=== PATIENT | female | born 1995 | race Caucasian/White ===

== ENCOUNTER → 2017-05-02 | Outpatient (CLI) | payer OTHER ==
[2017-05-03 15:01] LABS: Source VAGINAL
== END | disposition home or self-care (01) ==
LOC: LAB SHORT 14:24 → LAB 14:24
PROVIDERS: Advanced Practice Midwife
DX: Z36.89 Encounter for other specified antenatal screening (principal)
CPT/HCPCS: 87491; 87591; 87661; G0123

== ENCOUNTER → 2017-08-20 | Outpatient (CLI) | payer BC, OTHER ==
[2017-08-20 18:39] LABS: Hemoglobin 11.3 g/dL (11.5-16.0)
== END | disposition home or self-care (01) ==
LOC: LAB SHORT 16:55 → LAB 16:55
PROVIDERS: Advanced Practice Midwife
DX: Z34.80 Encounter for supervision of other normal pregnancy, unspecified trimester (principal)
CPT/HCPCS: 82950; 85014; 85018

== ENCOUNTER → 2017-10-22 | Outpatient (CLI) | payer BC, OTHER | LOC: PLD 04:22 → LAB SHORT 04:22 | DX: Z34.80 Encounter for supervision of other normal pregnancy, unspecified trimester (principal) | CPT/HCPCS: 87081; 87653 ==

== ENCOUNTER → 2020-05-11 | Outpatient (CLI) | payer OTHER ==
[~2020-05-11] MED LIST: DOCU100 PO; FERSU90EL PO; FISH OIL + D31 EACH PO; FOLGARD TABLET1 EACH PO; PRENATA CHEWAB1 EACH PO
== END | disposition home or self-care (01) ==
LOC: LAB 14:15 → LAB SHORT 14:15
PROVIDERS: Obstetrics & Gynecology
DX: Z34.81 Encounter for supervision of other normal pregnancy, first trimester (principal)
CPT/HCPCS: G0123

== ENCOUNTER → 2020-06-10 | Outpatient (CLI) | payer OTHER ==
[2020-06-10 13:37] LABS: Source, Urine Voided
[2020-06-10 15:15] LABS: Appearance, Urine Clear (Clear); Bilirubin, Urine Neg (Neg); Blood, Urine 1+ (Neg); Color, Urine Yellow (P-Yellow); Glucose Qualitative, Urine Neg (Neg); Ketones, Urine Neg (Neg); Leukocyte Esterase, Urine 3+ (Neg); Nitrite, Urine Neg (Neg); Protein, Urine Neg (Neg); Specific Gravity, Urine 1.015 (1.003-1.022); Urobilinogen, Urine NORM (Normal)
[2020-06-10 15:24] LABS: Bacteria Many /hpf; Red Blood Cells, Urine 0-2 /hpf (0-2); Squamous Epithelial Cells Mod /hpf (Few)
[2020-06-11 08:29] LABS: G. vaginalis (DNA Probe) Positive (NEGATIVE); T. vaginalis (DNA Probe) Negative (NEGATIVE)
[2020-06-11 08:30] LABS: Candida species (DNA Probe) Positive (NEGATIVE)
== END | disposition home or self-care (01) ==
LOC: LAB SHORT 10:30
PROVIDERS: Advanced Practice Midwife
DX: N76.0 Acute vaginitis (principal)
CPT/HCPCS: 81001; 87086; 87480; 87510; 87660

== ENCOUNTER → 2020-11-02 | Outpatient (CLI) | payer OTHER | END | disposition home or self-care (01) | LOC: LAB SHORT 11:51 → LAB 11:51 | DX: Z34.81 Encounter for supervision of other normal pregnancy, first trimester (principal) | CPT/HCPCS: 87081; 87150 ==

== ENCOUNTER 2020-11-24 05:07 | Inpatient (IN) | payer OTHER ==
[~2020-11-24] VITALS: Ht 170.2 cm; Wt 90.5 kg
[2020-11-24 06:41] LABS: BASOPHILS ABSOLUTE AUTO 0.02 K/mm3 (0.00-0.23); BASOPHILS PERCENT AUTO 0 % (0-2); EOSINOPHILS ABSOLUTE AUTO 0.03 K/mm3 (0.00-0.68); EOSINOPHILS PERCENT AUTO 0 % (0-6); Hematocrit 37.9 % (33.0-51.0); Hemoglobin 13.2 g/dL (11.5-16.0); IMMATURE GRAN ABSOLUTE AUTO 0.07 K/mm3 (0.00-0.10); IMMATURE GRAN PERCENT AUTO 1 % (0-1); LYMPHOCYTES ABSOLUTE AUTO 1.42 K/mm3 (0.84-5.20); LYMPHOCYTES PERCENT AUTO 13 % (21-46); MONOCYTES PERCENT AUTO 3 % (4-13); Mean Corpuscular HGB 30.8 pg (26.0-34.0); Mean Corpuscular HGB Conc 34.8 g/dL (31.5-36.5); Mean Corpuscular Volume 89 fL (80-100); Mean Platelet Volume 11.5 fL (9.1-12.4); NEUTROPHILS ABSOLUTE AUTO 8.86 K/mm3 (1.96-9.15); NEUTROPHILS PERCENT AUTO 83 % (41-73); Platelet Count 163 K/mm3 (150-400); RDW Coefficient Variation 14.5 % (11.7-14.2); RDW Standard Deviation 46.2 fL (35.1-46.3); Red Blood Cell Count 4.28 M/mm3 (3.80-5.20)
[2020-11-24 07:28] LABS: SARS-Cov-2 (COVID-19) PCR, MMC Negative (NEGATIVE)
--- NOTE | 2020-11-25 10:57 | NUR ---
DISCHARGE INSTRUCTION DISCUSSED WITH PATIENT. QUESTIONS AND CONCERNS WERE ANSWERED. PATIENT DISCHARGED HOME.
== END 2020-11-25 10:55 | disposition home or self-care (01) | DRG 807 ==
LOC: OBS 05:07 → BC 05:09 → OBS 05:51 → BC 05:54
PROVIDERS: ADMIT Advanced Practice Midwife
PROC: 10E0XZZ Delivery of Products of Conception, External Approach (ICD-10-PCS; principal; 2020-11-24)
PROC: 0HQ9XZZ Repair Perineum Skin, External Approach (ICD-10-PCS; 2020-11-24)
DX: O70.0 First degree perineal laceration during delivery (principal); Z37.0 Single live birth; Z3A.39 39 weeks gestation of pregnancy; Z20.822 Contact with and (suspected) exposure to COVID-19
CPT/HCPCS: 36415; 85025; 86850; 86900; 86901; A9270; J2590; U0004

== ENCOUNTER 2022-04-12 09:37 | Day surgery (SDC) | payer BC, OTHER ==
[~2022-04-12] VITALS: Ht 170.2 cm; Wt 71.2 kg
--- NOTE | 2022-04-12 10:15 | NUR ---
04/12/22 Taylor5 Laura Vora CALL LIGHT WITHIN REACH.
--- NOTE | 2022-04-12 13:02 | NUR ---
04/12/22 1302 Obed Alberts PT URINATED BEFORE DISCHARGE.
== END 2022-04-12 12:50 | disposition home or self-care (01) ==
LOC: ORSCSDS 09:37
PROVIDERS: Obstetrics & Gynecology
PROC: 10D18ZZ Extraction of Products of Conception, Retained, Via Natural or Artificial Opening Endoscopic (ICD-10-PCS; principal; 2022-04-12 11:00)
DX: O02.1 Missed abortion (principal)
CPT/HCPCS: 88305; A9270; J1100; J1885; J2210; J2250; J2405; J2704; J3010; J7060; J7120

== ENCOUNTER → 2023-03-21 | Outpatient (CLI) | payer BC, OTHER ==
[2023-03-21 15:49] LABS: Candida species (DNA Probe) Positive (NEGATIVE); G. vaginalis (DNA Probe) Negative (NEGATIVE); T. vaginalis (DNA Probe) Negative (NEGATIVE)
[2023-03-21 16:08] LABS: BASOPHILS ABSOLUTE AUTO 0.02 K/mm3 (0.00-0.23); BASOPHILS PERCENT AUTO 0 % (0-2); EOSINOPHILS ABSOLUTE AUTO 0.13 K/mm3 (0.00-0.68); EOSINOPHILS PERCENT AUTO 1 % (0-6); Hematocrit 33.8 % (33.0-51.0); Hemoglobin 11.3 g/dL (11.5-16.0); IMMATURE GRAN ABSOLUTE AUTO 0.07 K/mm3 (0.00-0.10); IMMATURE GRAN PERCENT AUTO 1 % (0-1); LYMPHOCYTES ABSOLUTE AUTO 2.39 K/mm3 (0.84-5.20); LYMPHOCYTES PERCENT AUTO 26 % (21-46); MONOCYTES ABSOLUTE AUTO 0.56 K/mm3 (0.16-1.47); MONOCYTES PERCENT AUTO 6 % (4-13); Mean Corpuscular HGB 29.8 pg (26.0-34.0); Mean Corpuscular HGB Conc 33.4 g/dL (31.5-36.5); Mean Corpuscular Volume 89 fL (80-100); NEUTROPHILS PERCENT AUTO 66 % (41-73); Platelet Count 219 K/mm3 (150-400); RDW Coefficient Variation 14.8 % (11.7-14.2); RDW Standard Deviation 48.4 fL (35.1-46.3); Red Blood Cell Count 3.79 M/mm3 (3.80-5.20); White Blood Cell Count 9.27 K/mm3 (4.00-11.30)
== END ==
LOC: LAB 09:33 → LAB SHORT 09:33
PROVIDERS: Advanced Practice Midwife
DX: O23.592 Infection of other part of genital tract in pregnancy, second trimester (principal)
CPT/HCPCS: 82950; 85025; 87480; 87510; 87660

== ENCOUNTER 2023-06-18 23:41 | Inpatient (IN) | payer BC, OTHER ==
[~2023-06-18] VITALS: Ht 170.2 cm; Wt 84.0 kg
[~2023-06-18 23:41] MED LIST changes: +Oxytocin 10 Unit / ML Vial XX ONE
[2023-06-18] MEDS ORDERED: Misoprostol 200 MCG Tab PR SCH (23:55)
[2023-06-18] MEDS ORDERED: LR Oxytocin 20 Units 1,000 ML IV SCH (23:55)
[2023-06-18] MEDS ORDERED: Bupivacaine HCl 2.5 MG/ML 10ML P/F Injection XX SCH (23:55)
[2023-06-18] MEDS ORDERED: Lactated Ringer's 1,000 ML IV PRN (23:55)
[2023-06-18] MEDS ORDERED: Bupivacaine 0.5% HCl 5 MG/ML 30MLVIAL XX SCH (23:55)
[2023-06-18] MEDS ORDERED: Methylergonovine Maleate 0.2MG / ML 1ML Amp IM SCH (23:55)
[2023-06-18] MEDS ORDERED: Oxytocin 10 Unit / ML Vial IM SCH (23:55)
[2023-06-18] MEDS ORDERED: Castor Oil 59.146 ML BTL TOP SCH (23:55)
[2023-06-18] MEDS ORDERED: Lidocaine HCl 1% 30 ML SDV XX SCH (23:55)
[2023-06-19] VITALS (15 sets, daily range): BP systolic 98–143; BP diastolic 53–86
[2023-06-19] MEDS ORDERED: Calcium Carbonate 500 MG Tab Chew PO PRN (00:05)
[2023-06-19] MEDS ORDERED: FentaNYL Citrate 50 MCG/ML 2 ML Injection IV PRN (00:05)
[2023-06-19] MEDS ORDERED: Ondansetron HCl 2 MG / ML 2ML Vial IV PRN (00:05)
[2023-06-19] MEDS ORDERED: Acetaminophen 500 MG Tab PO PRN (00:05)
[2023-06-19] MEDS ORDERED: Oxytocin 10 Unit / ML Vial IM ONE (00:35)
[2023-06-19] MEDS ORDERED: Docusate Sodium 100 MG Cap PO PRN (00:35)
[2023-06-19] MEDS ORDERED: Witch Hazel/Glycerin PADS TOP PRN (00:35)
[2023-06-19] MEDS ORDERED: Benzocaine Topical Anesthetic Spray 60GM TOP PRN (00:35)
[2023-06-19] MEDS ORDERED: Lanolin Cream TOP PRN (00:35)
[2023-06-19] MEDS ORDERED: Ibuprofen 400 MG Tab PO PRN (00:35)
[2023-06-19] MEDS ORDERED: Zolpidem Tartrate 5 MG Tab PO PRN (00:35)
[2023-06-19] MEDS ORDERED: Acetaminophen 325 MG TABLET PO PRN (00:40)
[2023-06-19 06:17] LABS: Hematocrit 37.5 % (33.0-51.0); Hemoglobin 13.1 g/dL (11.5-16.0); Mean Corpuscular HGB 31.3 pg (26.0-34.0); Mean Corpuscular HGB Conc 34.9 g/dL (31.5-36.5); Mean Corpuscular Volume 90 fL (80-100); Mean Platelet Volume 11.3 fL (9.1-12.4); Platelet Count 180 K/mm3 (150-400); RDW Coefficient Variation 14.1 % (11.7-14.2); RDW Standard Deviation 45.1 fL (35.1-46.3); Red Blood Cell Count 4.19 M/mm3 (3.80-5.20); White Blood Cell Count 13.37 K/mm3 (4.00-11.30)
[2023-06-19] MEDS ORDERED: Prenatal Vit/FE Fumarate/FA 1 Tab PO SCH (09:00)
[2023-06-19] MEDS ORDERED: DOCU100 PO (11:14)
[2023-06-19] MEDS ORDERED: PRENATAL TABLE1 EAC2 PO (11:14)
[2023-06-19] MEDS ORDERED: Acetaminophen650 M1 PO (11:14)
[2023-06-19] MEDS ORDERED: IBUP400 PO (11:14)
--- NOTE | 2023-06-19 18:52 | NUR ---
REPT TO ON COMING SHIFT, STABLE PT CARING FOR SELF AND NB WELL, BREAST FEEDING GOING WELL
--- NOTE | 2023-06-19 23:00 | NUR ---
THIS RN TO ASSUME CARE OF PT.
[2023-06-20 05:36] VITALS: BP 102/61
[2023-06-20 07:45] VITALS: BP 131/60
--- NOTE | 2023-06-20 09:41 | NUR ---
Pt. is awake in bed and is holding the baby when she welcomes my visit. Spouse is at bedside and the family is known to this fermentation operator from the community. Facilitate a life update and the details of delivery. Pastoral support is given and matters of luis and belief are considered. Prayed for the Pt. and blessed the . pt. and spouse verbalized gratitude for the spiritual care visit.
[2023-06-20 11:20] VITALS: BP 112/74
--- NOTE | 2023-06-20 11:34 | NUR ---
DISCHARGE TO HOME WITH NB
== END 2023-06-20 11:34 | disposition home or self-care (01) | DRG 807 ==
LOC: OBS 23:41 → BC 23:44 → OBS 23:53 → BC 23:56
PROVIDERS: ADMIT Family Medicine
PROC: 10E0XZZ Delivery of Products of Conception, External Approach (ICD-10-PCS; principal; 2023-06-19)
DX: O48.0 Post-term pregnancy (principal); Z37.0 Single live birth; Z3A.40 40 weeks gestation of pregnancy; O77.0 Labor and delivery complicated by meconium in amniotic fluid
CPT/HCPCS: 36415; 85027; 86850; 86900; 86901; A9270; J2590

== ENCOUNTER → 2023-07-31 | Outpatient (CLI) | payer BC, OTHER ==
[~2023-07-31] MED LIST changes: +Acetaminophen650 M1 PO; +IBUP400 PO; -Oxytocin 10 Unit / ML Vial XX ONE; +PRENATAL TABLE1 EAC2 PO
[2023-08-15 06:33] LABS: HPV HIGH RISK BY TMA Not Detected; HPV SOURCE Cervical
== END ==
LOC: LAB 11:48 → LAB SHORT 11:48
PROVIDERS: Advanced Practice Midwife
DX: Z01.419 Encounter for gynecological examination (general) (routine) without abnormal findings (principal)
CPT/HCPCS: 87624; G0123